=== PATIENT | male | born 1990 | race Caucasian/White ===

== ENCOUNTER 2019-04-09 14:27 | Emergency (ER) | payer OTHER ==
[~2019-04-09] VITALS: Ht 162.6 cm; Wt 146.0 kg
[2019-04-09] MEDS ORDERED: SODIUM CHLORIDE 0.9% 1,000 ML IV ONE (15:00)
[2019-04-09 15:43] LABS: BASOPHILS % 0.7 % (0.0-2.0); EOSINOPHILS % 0.4 % (0.0-5.0); HEMATOCRIT. 46.3 % (42.0-52.0); LYMPHOCYTES % 23.6 % (20.0-50.0); MEAN CORPUSCULAR HEMOGLOBIN 29.8 pg (28.0-32.0); MEAN CORPUSCULAR VOLUME 86.5 fL (80.0-94.0); MEAN PLATELET VOLUME 8.6 fl (7.4-10.4); MONOCYTES % 9.7 % (2.0-8.0); NEUTROPHILS % 65.6 % (40.0-76.0); PLATELET 260 x1000/uL (130-400); RED BLOOD CELL COUNT 5.36 mill/uL (4.7-6.1); RED CELL DISTRIBUTION WIDTH 13.5 % (11.6-14.6)
[2019-04-09 15:46] LABS: CHLORIDE 111 mEq/L (98-107)
[2019-04-09 16:49] VITALS: BP 118/72
== END 2019-04-09 16:55 | disposition home or self-care (01) ==
LOC: ER 14:50
DX: R00.2 Palpitations (principal); R03.0 Elevated blood-pressure reading, without diagnosis of hypertension; Z86.79 Personal history of other diseases of the circulatory system; Z98.890 Other specified postprocedural states
CPT/HCPCS: 36415; 71045; 80053; 83735; 84484; 85025; 93005; 99284